=== PATIENT | male | born 1970 | race Caucasian/White ===

== ENCOUNTER 2022-05-12 22:50 | Inpatient (IN) | payer OTHER ==
[~2022-05-12] VITALS: Ht 182.9 cm; Wt 82.8 kg
[2022-05-13 00:23] LABS: BASOPHIL 0.2 % (0-2); EOSINOPHIL 1.6 % (0-5); HCT 42.2 % (42.0-52.0); HGB 15.3 g/dl (13.2-18.0); MCH 32.4 pg (25.0-31.0); MCHC 36.3 g/dL (32.0-36.0); MCV 89.4 fL (78.0-100.0); MONOCYTE 9.2 % (0-12); MPV 9.1 fL (6.0-9.5); NEUTROPHIL 76.2 % (41-80); NRBC 0; PLT 420 K/uL (150-400); RBC 4.72 M/uL (4.70-6.00); RDW 11.6 % (11.5-14.0); WBC 13.6 K/uL (4.0-10.5)
[2022-05-13 00:43] LABS: ALBUMIN 2.8 g/dL (3.4-5.0); BILIRUBIN - TOTAL 0.4 mg/dL (0.2-1.0); BUN/CREAT RATIO (CALC) 15.8 RATIO; CREATININE 0.57 mg/dL (0.67-1.17); GLOBULIN (CALCULATION) 4.2 g/dL; POTASSIUM 2.9 mmol/L (3.5-5.1)
[2022-05-13 02:34] LABS: CORONAVIRUS 2019 SARS-COV-2 NEGATIVE (NEGATIVE); INFLUENZA A NAA NEGATIVE (NEGATIVE)
[2022-05-13 05:49] LABS: BASOPHIL 0.3 % (0-2); EOSINOPHIL 3.3 % (0-5); HCT 41.4 % (42.0-52.0); HGB 14.9 g/dl (13.2-18.0); MCH 32.6 pg (25.0-31.0); MCV 90.6 fL (78.0-100.0); MONOCYTE 12.2 % (0-12); MPV 8.9 fL (6.0-9.5); NEUTROPHIL 69.6 % (41-80); NRBC 0; PLT 387 K/uL (150-400); RBC 4.57 M/uL (4.70-6.00); RDW 11.6 % (11.5-14.0)
[2022-05-13 05:51] LABS: WBC 12.3 K/uL (4.0-10.5)
[2022-05-13 06:08] LABS: INR 1.05 (0.9-1.2); PROTHROMBIN TIME 13.4 SECONDS (11.9-13.9); PTT 28.6 SECONDS (24.9-34.6)
[2022-05-13 06:18] LABS: BUN/CREAT RATIO (CALC) 16.4 RATIO; C-REACTIVE PROTEIN 4.1 mg/dL (<=0.90); CREATININE 0.61 mg/dL (0.67-1.17); MAGNESIUM 1.9 mg/dL (1.8-2.4); PHOSPHORUS 4.8 mg/dL (2.6-4.7); POTASSIUM 3.5 mmol/L (3.5-5.1)
[2022-05-13 10:48] LABS: BILIRUBIN NEGATIVE (NEGATIVE); BLOOD TRACE-INTACT Ery/uL (NEGATIVE); CLARITY CLEAR (CLEAR); COLOR YELLOW (YELLOW); GLUCOSE (U) NORMAL (NORMAL); LEUKOCYTES NEGATIVE Leu/uL (NEGATIVE); NITRITE NEGATIVE (NEGATIVE); PROTEIN TRACE (LOW) mg/dL (NEGATIVE); SPECIFIC GRAVITY <=1.005 (1.001-1.030); UROBILINOGEN 0.2 mg/dL (0.2-1.0)
[2022-05-13 10:56] LABS: BACTERIA TRACE
[2022-05-13 11:06] LABS: URINE CREATININE 27.13 mg/dL (29.00-226.00)
[2022-05-13] MEDS ORDERED: HYDROCHLOROTHIA25 MG PO (11:10)
[2022-05-13] MEDS ORDERED: CYCLOBENZAPRINE10 MG PO (11:11)
[2022-05-13 12:28] LABS: BUN/CREAT RATIO (CALC) 16.2 RATIO; CREATININE 0.68 mg/dL (0.67-1.17); POTASSIUM 4.2 mmol/L (3.5-5.1)
[2022-05-13] MEDS ORDERED: SENOKOT8.6 MG PO (14:03)
[2022-05-13] MEDS ORDERED: MIRALAX17 GM PO (14:03)
[2022-05-13] MEDS ORDERED: MORPHINE SULFAT15 MG PO (14:03)
[2022-05-13] MEDS ORDERED: OXYCODONE HCL10 MG PO (14:03)
[2022-05-13] MEDS ORDERED: NAPROSYN250 MG PO (14:03)
[2022-05-13] MEDS ORDERED: ACETAMINOPHEN500 M1 PO (14:03)
[2022-05-13] MEDS ORDERED: NARCAN4 MG (14:03)
[2022-05-13 18:30] LABS: BUN/CREAT RATIO (CALC) 18.4 RATIO; CREATININE 0.87 mg/dL (0.67-1.17); POTASSIUM 4.2 mmol/L (3.5-5.1)
[2022-05-14 01:01] LABS: BUN/CREAT RATIO (CALC) 16.5 RATIO; CREATININE 0.79 mg/dL (0.67-1.17); POTASSIUM 4.2 mmol/L (3.5-5.1)
[2022-05-14 05:50] LABS: HGB 14.4 g/dl (13.2-18.0); MCH 32.4 pg (25.0-31.0); MCHC 35.1 g/dL (32.0-36.0); MCV 92.1 fL (78.0-100.0); MPV 9.1 fL (6.0-9.5); RBC 4.45 M/uL (4.70-6.00); RDW 11.8 % (11.5-14.0); WBC 11.9 K/uL (4.0-10.5)
[2022-05-14 06:09] LABS: BUN/CREAT RATIO (CALC) 15.4 RATIO; CREATININE 0.78 mg/dL (0.67-1.17); POTASSIUM 3.9 mmol/L (3.5-5.1)
[2022-05-14] MEDS ORDERED: MORPHINE SULFAT15 MG PO (09:37)
[2022-05-14] MEDS ORDERED: MIRALAX17 GM PO (09:37)
[2022-05-14] MEDS ORDERED: ACETAMINOPHEN500 M1 PO (09:37)
[2022-05-14] MEDS ORDERED: NAPROSYN250 MG PO (09:37)
[2022-05-14] MEDS ORDERED: SENOKOT8.6 MG PO (09:37)
[2022-05-14] MEDS ORDERED: OXYCODONE HCL10 MG PO (09:37)
[2022-05-14] MEDS ORDERED: NARCAN4 MG (09:37)
[2022-05-14] MEDS ORDERED: ONDANSETRON ODT4 MG PO (11:57)
== END 2022-05-14 11:52 | disposition home or self-care (01) | DRG 948 ==
LOC: FER 22:50 → FTCU 05-13 01:15
PROVIDERS: Emergency Medicine; Nurse Practitioner Acute Care; ADMIT Family Medicine
DX: G89.3 Neoplasm related pain (acute) (chronic) (principal); C79.51 Secondary malignant neoplasm of bone; C64.1 Malignant neoplasm of right kidney, except renal pelvis; C77.2 Secondary and unspecified malignant neoplasm of intra-abdominal lymph nodes; C78.00 Secondary malignant neoplasm of unspecified lung; C78.7 Secondary malignant neoplasm of liver and intrahepatic bile duct; E87.1 Hypo-osmolality and hyponatremia; Z20.822 Contact with and (suspected) exposure to COVID-19; M54.50 Low back pain, unspecified; E87.6 Hypokalemia; I10 Essential (primary) hypertension; K59.03 Drug induced constipation; Z72.89 Other problems related to lifestyle; T50.2X5A Adverse effect of carbonic-anhydrase inhibitors, benzothiadiazides and other diuretics, initial encounter; F17.210 Nicotine dependence, cigarettes, uncomplicated; I71.4 Abdominal aortic aneurysm, without rupture; D72.829 Elevated white blood cell count, unspecified; Z82.49 Family history of ischemic heart disease and other diseases of the circulatory system; R63.4 Abnormal weight loss; Z79.899 Other long term (current) drug therapy
CPT/HCPCS: 36415; 72100; 80048; 80053; 81001; 82378; 82570; 83735; 84100; 84300; 84443; 84484; 85025; 85610; 85730; 86140; 94010; 94760; 96372; J1170; J1650; J1885; J2405; J3475; J3480; J7030; J7050; U0002